=== PATIENT | female | born 1930 | race Caucasian/White ===

== ENCOUNTER → 2017-08-22 | Outpatient (CLI) | payer OTHER ==
[~2017-08-22] MED LIST: ASPIRIN325 PO; CALCIUM 600 +1 EAC5 PO; FISH OIL 1,0001 EAC5 PO; HYDROCHLOROTHIA25 M1 PO; MULTIVITAMINS PO; ZOCOR 10 MG TAB10 MG PO
[2017-08-22 09:33] LABS: CREATININE 0.9 mg/dL (0.6-1.0)
== END ==
LOC: CAT 06:03
PROVIDERS: Internal Medicine Cardiovascular Disease
DX: R06.02 Shortness of breath (principal); R07.89 Other chest pain

== ENCOUNTER 2017-11-08 08:19 | Emergency (ER) | payer OTHER ==
[~2017-11-08] VITALS: Ht 162.6 cm; Wt 63.5 kg
--- NOTE | ~2017-11-08 | EKG ---
[facility] [place] [address] ELECTROCARDIOGRAM REPORT Name: BRIANA DOTY [id number] Admission: 11/08/17 Attend Phys: Discharge: Date of : 30 Report #: [id number] THIS REPORT FOR: //name// [facility] ED Test Date: 2017-11-08 Test Time: 08:22:44 Pat Name: BRIANA DOTY Department: Room: Gender: F [employer] Engineer: candido : 1930 Requested By: Ovdiio Kaiser Order Number: [id number] MD: Ozzy Randall Measurements Intervals [place] Rate: 84 P: 78 [place]: 171 QRS: 52 QRSD: 114 T: 49 QT: 405 QTc: 479 Interpretive Statements Sinus rhythm Multiple premature complexes, vent & supraven RSR' in V1 or V2, right VCD Nonspecific ST segment abnormality Compared to ECG 09/02/2011 04:02:48 Premature ventricular complexes are now present Sinus bradycardia no longer present Electronically Signed On 11-08-2017 9:05:26 CDT by Ozzy Randall [email or web address] <ELECTRONICALLY SIGNED> By: Ozzy Randall MD, [facility] 11/08/1705 1 1 Ozzy Randall MD, [facility] /EPI
[~2017-11-08 08:19] MED LIST changes: +ASPIR 8181 MG PO; +CALCIUM 600 +1 EAC1 PO; +IMDUR 30 MG TAB30 M1 PO; +MELATONIN3 MG PO; +OCUVITE EYE +1 EACH PO; +SYSTANE BALANCE10 ML OPHTHALMIC
[2017-11-08] MEDS ORDERED: ADVAIR HFA 230M12 GM INH (08:25)
[2017-11-08 08:57] LABS: ABSOLUTE NEUTROPHILS 5.5 thou/uL (1.4-8.2); BASOPHILS 0.6 % (0.0-2.0); EOSINOPHILS 0.2 % (0.0-3.0); HEMATOCRIT 45.1 % (37.0-47.0); HEMOGLOBIN 15.3 gm/dL (12.0-15.0); LYMPHOCYTES 18.3 % (24.0-44.0); MCH 30.4 pg (26.0-34.0); MCHC 33.8 g/dL (28.0-37.0); MCV 89.9 fL (80.0-100.0); MONOCYTES 7.5 % (1.0-8.0); PLATELET COUNT 246 thou/uL (150-400); POLYS 73.4 % (36.0-66.0); RBC 5.01 mil/uL (4.20-5.00); RDW 13.2 % (10.5-14.5); WBC 7.5 thou/uL (4.0-11.0)
[2017-11-08 08:58] LABS: ANION GAP 3 mmol/L (7-16); BUN 18 mg/dL (7-18); CALCIUM 9.7 mg/dL (8.5-10.1); CHLORIDE 104 mmol/L (98-107); CO2 28 mmol/L (21-32); CREATININE 0.8 mg/dL (0.6-1.0); GLUCOSE 139 mg/dL (74-106); POTASSIUM 4.6 mmol/L (3.5-5.1); SODIUM 135 mmol/L (136-145)
[2017-11-08 09:07] LABS: ALBUMIN 3.8 g/dL (3.4-5.0); APTT 26.8 Seconds (24.5-32.8); MAGNESIUM 1.7 mg/dL (1.8-2.4); SGOT 536 U/L (15-37); SGPT 373 U/L (30-65); TOTAL BILIRUBIN 2.2 mg/dL (<0.1-1.0); TOTAL PROTEIN 7.7 g/dL (6.4-8.2); TROPONIN-I <0.06 ng/mL (<0.06)
== END 2017-11-08 12:39 | disposition home or self-care (01) ==
LOC: ER 08:19
PROVIDERS: Emergency Medicine
DX: R07.89 Other chest pain (principal); R79.89 Other specified abnormal findings of blood chemistry; I10 Essential (primary) hypertension; Z90.49 Acquired absence of other specified parts of digestive tract